=== PATIENT | male | born 1985 | race African-American/Black ===

== ENCOUNTER 2017-11-16 12:45 | Emergency (ER) | payer SELFPAY ==
[2017-11-16] MEDS ORDERED: Ketorolac Tromethamine 60 MG/2 ML VIAL ONE (14:39)
[2017-11-16] MEDS ORDERED: Bicillin LA 1.2 MILLION UNITS/2 ML SYRINGE ONE (14:39)
== END 2017-11-16 15:02 | disposition home or self-care (01) ==
LOC: ERS 12:45
DX: J02.9 Acute pharyngitis, unspecified (principal); F17.210 Nicotine dependence, cigarettes, uncomplicated; I10 Essential (primary) hypertension
CPT/HCPCS: 87081; 87430; 96372; J0561; J1885